=== PATIENT | female | born 1940 | race Caucasian/White ===

== ENCOUNTER 2016-12-05 11:35 | Inpatient (IN) | payer MEDICARE, OTHER ==
[~2016-12-05] VITALS: Ht 157.5 cm; Wt 72.8 kg
[2016-12-05 12:17] LABS: BASOPHIL 0.6 % (0-2); EOSINOPHIL 4.2 % (0-7); HCT 26.2 % (37.0-47.0); HGB 8.6 g/dl (12.5-16.0); LYMPHOCYTE 12.5 % (15-48); MCH 33.5 pg (25.0-31.0); MCHC 32.8 g/dL (32.0-36.0); MCV 101.9 fL (78.0-100.0); MONOCYTE 5.2 % (0-12); NEUTROPHIL 77.5 % (41-80); PLT 177 K/uL (150-400); RBC 2.57 M/uL (4.20-5.40); RDW 14.9 % (11.5-14.0); WBC 4.8 K/uL (4.0-10.5)
[2016-12-05 12:35] LABS: TROPONIN T < 0.010 ng/mL
[2016-12-05 12:36] LABS: INR 1.18 (0.9-1.2); PRO-BNP 5036 pg/mL (0-450); PROTHROMBIN TIME 14.6 SECONDS (11.7-14.0)
[2016-12-05 12:37] LABS: ALBUMIN 3.5 g/dL (3.4-4.8); BILIRUBIN - TOTAL 0.3 mg/dL (0.1-1.0); CREATININE 1.1 mg/dL (0.5-1.0); GLOBULIN (CALCULATION) 2.3 g/dL (2.2-4.2); POTASSIUM 4.2 mmol/L (3.5-5.1); TOTAL PROTEIN 5.8 g/dL (6.4-8.3)
[2016-12-05 12:46] LABS: BILIRUBIN NEGATIVE (NEGATIVE); BLOOD 1+ Ery/uL (NEGATIVE); CLARITY CLOUDY (CLEAR); COLOR YELLOW (YELLOW); GLUCOSE (U) NORMAL (NORMAL); KETONE (U) NEGATIVE (NEGATIVE); LEUKOCYTES 3+ Leu/uL (NEGATIVE); NITRITE NEGATIVE (NEGATIVE); PROTEIN NEGATIVE (NEGATIVE); UROBILINOGEN 0.2 mg/dL (0.2-1.0)
[2016-12-05 12:51] LABS: BACTERIA 3+; SQUAMOUS EPITHELIAL CELLS RARE; URINARY WBC TNTC
[2016-12-05 16:49] LABS: BILIRUBIN NEGATIVE (NEGATIVE); BLOOD NEGATIVE Ery/uL (NEGATIVE); CLARITY CLEAR (CLEAR); COLOR YELLOW (YELLOW); GLUCOSE (U) NORMAL (NORMAL); KETONE (U) NEGATIVE (NEGATIVE); LEUKOCYTES 2+ Leu/uL (NEGATIVE); NITRITE NEGATIVE (NEGATIVE); PROTEIN NEGATIVE (NEGATIVE); UROBILINOGEN 0.2 mg/dL (0.2-1.0)
[2016-12-05 17:03] LABS: BACTERIA TRACE; URINARY RBC RARE; URINARY WBC 20-50
[2016-12-06 05:00] LABS: HCT 23.2 % (37.0-47.0); HGB 7.5 g/dl (12.5-16.0); MCH 32.8 pg (25.0-31.0); MCHC 32.3 g/dL (32.0-36.0); MCV 101.3 fL (78.0-100.0); RBC 2.29 M/uL (4.20-5.40); RDW 14.8 % (11.5-14.0); WBC 3.8 K/uL (4.0-10.5)
[2016-12-06 05:22] LABS: CREATININE 1.2 mg/dL (0.5-1.0); POTASSIUM 4.3 mmol/L (3.5-5.1)
[2016-12-07 04:49] LABS: HCT 29.8 % (37.0-47.0); MCH 32.1 pg (25.0-31.0); MCHC 33.6 g/dL (32.0-36.0); MCV 95.5 fL (78.0-100.0); MPV 9.8 fL (6.0-9.5); RBC 3.12 M/uL (4.20-5.40); RDW 17.1 % (11.5-14.0); WBC 4.4 K/uL (4.0-10.5)
[2016-12-07 05:08] LABS: CREATININE 1.2 mg/dL (0.5-1.0); POTASSIUM 4.5 mmol/L (3.5-5.1)
[2016-12-07] MEDS ORDERED: ANASTROZOLE1 MG PO (14:56)
[2016-12-07] MEDS ORDERED: SPIRIVA 185 PUFFS/IN INH (14:56)
[2016-12-07] MEDS ORDERED: EFFEXOR XR75 MG PO (14:56)
[2016-12-07] MEDS ORDERED: OS-CAL500 MG PO (14:57)
[2016-12-07] MEDS ORDERED: NORCO 5-325 TA1 EACH PO (14:57)
[2016-12-07] MEDS ORDERED: ZOCOR20 MG PO (14:58)
[2016-12-07] MEDS ORDERED: FLONASE ALLER15.8 ML (14:58)
== END 2016-12-07 09:35 | disposition home or self-care (01) | DRG 378 ==
LOC: FER 11:35 → FTCU 14:05
PROVIDERS: Emergency Medicine; ADMIT Internal Medicine
PROC: 30233N1 Transfusion of Nonautologous Red Blood Cells into Peripheral Vein, Percutaneous Approach (ICD-10-PCS; principal; 2016-12-06)
DX: K92.2 Gastrointestinal hemorrhage, unspecified (principal); N39.0 Urinary tract infection, site not specified; I95.9 Hypotension, unspecified; I48.2 Chronic atrial fibrillation; I48.91 Unspecified atrial fibrillation; J44.9 Chronic obstructive pulmonary disease, unspecified; D62 Acute posthemorrhagic anemia; E86.1 Hypovolemia; D64.9 Anemia, unspecified; Z95.810 Presence of automatic (implantable) cardiac defibrillator; Z79.01 Long term (current) use of anticoagulants; Z85.3 Personal history of malignant neoplasm of breast; E78.00 Pure hypercholesterolemia, unspecified; Z88.0 Allergy status to penicillin; B96.20 Unspecified Escherichia coli [E. coli] as the cause of diseases classified elsewhere
CPT/HCPCS: 36415; 36430; 71010; 71020; 73630; 80048; 80053; 81001; 83880; 84484; 85025; 85610; 85730; 86850; 86900; 86901; 86922; 87076; 87088; 87186; 93005; 94640; C9113; J1956; J2270; P9016